=== PATIENT | female | born 1950 | race Caucasian/White ===

== ENCOUNTER 2018-05-08 10:15 | Inpatient (IN) | payer OTHER ==
[~2018-05-08] VITALS: Ht 154.9 cm; Wt 89.8 kg
[2018-05-08] MEDS ORDERED: AVALIDE 300-121 EACH PO (12:56)
== END 2018-05-17 12:04 | disposition home or self-care (01) | DRG 331 ==
LOC: O/R 05-15 05:39 → SURH 05-15 05:39
PROVIDERS: Colon & Rectal Surgery
PROC: 0DJD8ZZ Inspection of Lower Intestinal Tract, Via Natural or Artificial Opening Endoscopic (ICD-10-PCS; 2018-05-15)
PROC: 4A033R1 Measurement of Arterial Saturation, Peripheral, Percutaneous Approach (ICD-10-PCS; 2018-05-15)
PROC: 4A12X4Z Monitoring of Cardiac Electrical Activity, External Approach (ICD-10-PCS; 2018-05-15)
PROC: 0DTN4ZZ Resection of Sigmoid Colon, Percutaneous Endoscopic Approach (ICD-10-PCS; principal; 2018-05-15 10:00)
DX: K57.32 Diverticulitis of large intestine without perforation or abscess without bleeding (principal); I11.9 Hypertensive heart disease without heart failure; G47.33 Obstructive sleep apnea (adult) (pediatric); K58.8 Other irritable bowel syndrome

== ENCOUNTER 2019-06-14 09:44 | Day surgery (SDC) | payer OTHER ==
[~2019-06-14 09:44] MED LIST: AVALIDE 300-121 EACH PO
== END 2019-06-14 17:20 | disposition home or self-care (01) ==
LOC: AMB-ENDOS 09:44 → CIR.AMB 09:44 → AMB-ENDOS 17:20
DX: K57.32 Diverticulitis of large intestine without perforation or abscess without bleeding (principal); K64.1 Second degree hemorrhoids